=== PATIENT | female | born 1975 | race African-American/Black ===

== ENCOUNTER 2017-03-26 10:56 | Inpatient (IN) | payer BC, MEDICAID ==
[~2017-03-26] VITALS: Ht 165.1 cm; Wt 104.3 kg
[2017-03-26] MEDS ORDERED: TRAM50TA3 PO (11:02)
[2017-03-26] MEDS ORDERED: IBUP-2030 PO (11:02)
[2017-03-26] MEDS ORDERED: KETOROLAC 60MG/2ML VIAL IM ONE (15:00)
[2017-03-26 15:43] LABS: CLARITY URINE CLEAR (CLEAR); COLOR URINE YELLOW (YELLOW); GLUCOSE URINE NEGATIVE (NEGATIVE); KETONES URINE 1+ (NEGATIVE); LEUKOCYTE ESTERASE URINE NEGATIVE (NEGATIVE); NITRITE URINE NEGATIVE (NEGATIVE); OCCULT BLOOD URINE TRACE (NEGATIVE); PH URINE 5.5 (4.5-8.0); PROTEIN URINE NEGATIVE (NEGATIVE); SPECIFIC GRAVITY URINE 1.017 (1.005-1.030); UROBILINOGEN URINE 0.2 E.U./dL (0.2-1.0)
[2017-03-26] MEDS ORDERED: MORPHINE SULFATE 10 MG/ML CPJ IM ONE (17:45)
[2017-03-26] MEDS ORDERED: ONDANSETRON 4MG ODT PO ONE (17:45)
[2017-03-26] MEDS: CYCLOBENZAPRINE 10MG TABLET PO PRN (21:18)
[2017-03-26] MEDS: MORPHINE SULFATE 4 MG/ML CPJ (NOT FOR IM USE) IV PRN (21:40)
[2017-03-26 23:00] VITALS: BP 138/83
[2017-03-27] VITALS (7 sets, daily range): BP systolic 100–141; BP diastolic 56–92
[2017-03-27] MEDS: MORPHINE SULFATE 4 MG/ML CPJ (NOT FOR IM USE) IV PRN ×6 (02:00→21:17)
[2017-03-27] MEDS: GABAPENTIN 300MG CAPSULE PO SCH ×4 (02:05→21:19)
[2017-03-27] MEDS: CYCLOBENZAPRINE 10MG TABLET PO PRN ×2 (07:05→17:17)
[2017-03-27 07:07] LABS: PARTIAL THROMBOPLASTIN TIME 25.6 sec (23.4-31.0); PROTHROMBIN TIME 10.5 sec (9.4-11.6)
[2017-03-27 07:09] LABS: BASOPHILS % 0.4 % (0.0-2.0); EOSINOPHILS % 4.6 % (0.0-5.0); HEMATOCRIT. 39.4 % (36.0-48.0); HEMOGLOBIN. 13.2 g/dL (12.0-16.0); LYMPHOCYTES % 28.2 % (20.0-50.0); MEAN CORPUSCULAR HEMOGLOBIN 31.1 pg (28.0-32.0); MEAN PLATELET VOLUME 7.2 fl (7.4-10.4); MONOCYTES % 10.8 % (2.0-8.0); PLATELET 329 x1000/uL (130-400); RED BLOOD CELL COUNT 4.23 mill/uL (4.2-5.4); RED CELL DISTRIBUTION WIDTH 13.9 % (11.6-14.6)
[2017-03-27 08:26] LABS: CHLORIDE 110 mEq/L (98-107)
[2017-03-27 08:45] LABS: CARBON DIOXIDE 23 mEq/L (21-32)
[2017-03-27] MEDS ORDERED: POLYETHYLENE GLYCOL 3350 (17GM) 1 DOSE PACK PO SCH (09:00)
[2017-03-27] MEDS ORDERED: ENOXAPARIN 40MG/0.4ML SYR SUBCUT SCH (09:00)
[2017-03-27] MEDS: DOCUSATE SODIUM 100MG CAPSULE PO SCH ×2 (11:47→16:25)
[2017-03-27] MEDS: ENOXAPARIN 30MG/0.3ML SYR SUBCUT SCH ×2 (11:48→21:19)
[2017-03-27] MEDS ORDERED: LIDOCAINE 5% PATCH TOP SCH (13:00)
[2017-03-27] MEDS ORDERED: DEXAMETHASONE 4MG/ML 1ML VIAL IV NR (18:21)
== END 2017-03-27 23:41 | disposition short-term general hospital (02) | DRG 552 ==
LOC: ER 11:06 → 6EST 17:54 → SUPCPDRO 18:11 → ENRESERV 20:20
PROVIDERS: ADMIT Internal Medicine Critical Care Medicine; ATTEND Internal Medicine Critical Care Medicine
DX: M51.16 Intervertebral disc disorders with radiculopathy, lumbar region (principal); E66.9 Obesity, unspecified; J45.909 Unspecified asthma, uncomplicated; R32 Unspecified urinary incontinence; M47.896 Other spondylosis, lumbar region; G89.29 Other chronic pain; Z88.8 Allergy status to other drugs, medicaments and biological substances; Z87.891 Personal history of nicotine dependence; Z83.3 Family history of diabetes mellitus; Z82.49 Family history of ischemic heart disease and other diseases of the circulatory system; Z80.49 Family history of malignant neoplasm of other genital organs; Z79.899 Other long term (current) drug therapy; Z68.38 Body mass index [BMI] 38.0-38.9, adult
CPT/HCPCS: 36415; 72148; 80053; 81001; 83036; 85025; 85610; 85730; 96372; 97162; 99285; J1100; J1650; J1885; J2270; Q0162